=== PATIENT | female | born 1975 | race Caucasian/White ===

== ENCOUNTER 2022-08-01 08:20 | Emergency (ER) | payer OTHER, SELFPAY ==
[2022-08-01 08:32] VITALS: BP 136/73; PULSE 91; RESP 18; TEMP 36.6; O2SAT 100
--- NOTE | 2022-08-01 08:33 | ED.URI ---
HPI - URI/Sore Throat General Chief Complaint: Upper Respiratory Infection Stated Complaint: Sore Throat/Body Aches Time Seen by Provider: 08/01/22 08:33 History of Present Illness HPI Narrative: 46-year-old female presented for complaint of headache, body aches, sinus pressure/congestion, cough, Hot/cold. onset 3 days. She denies shortness of breath, wheezing, nausea, vomiting, diarrhea. She has not taken anything for symptoms. She endorses her coworkers have children with strep. Related Data Home Medications Medication Instructions Recorded Confirmed empagliflozin 10 mg tablet mg 08/01/22 (Jardiance) Allergies Allergy/AdvReac Type Severity Reaction Status Date / Time No Known Allergies Allergy Mild Verified 08/01/22 08:34 Review of Systems Review of Systems: ROS per HPI Exam Narrative: GENERAL: Ill-appearing, no acute distress. EYES: conjunctivae clear ENT: Mucous membranes moist. TM pearly fernandes with normal light reflex bilaterally; no tragal tenderness. Oropharynx erythematous without lesions. Tonsils enlarged and without exudate. No drooling, no hoarseness, no trismus, uvula midline. No tripod positioning, hot potato voice, or soft palate swelling. NECK: Supple. No lymphadenopathy CHEST: Clear to auscultation, breath sounds equal. No respiratory distress, speaks in full sentences. HEART: Regular rate and rhythm. No murmur heard. SKIN: Warm, dry, no rash. NEURO: Alert and oriented x3. Course Course Emergency Course: Patient is aware of diagnosis, understands and agrees to treatment plan. Anticipatory guidance given. Patient agrees to follow-up as directed and is aware of reasons to seek care at the emergency department. Portions of this record may have been created with voice recognition software Level of Care: Express Care Visit Vital Signs Vital signs: Vital Signs Temperature 97.8 F 08/01/22 08:32 Pulse Rate 91 08/01/22 08:32 Respiratory Rate 18 08/01/22 08:32 Blood Pressure 136/73 08/01/22 08:32 Pulse Oximetry 100 08/01/22 08:32 Oxygen Delivery Room Air 08/01/22 08:32 Temperature 97.8 F 08/01/22 08:32 Pulse Rate 91 08/01/22 08:32 Respiratory Rate 18 08/01/22 08:32 Blood Pressure 136/73 08/01/22 08:32 Pulse Oximetry 100 08/01/22 08:32 Oxygen Delivery Room Air 08/01/22 08:32 MDM - URI/Sore Throat MDM Narrative Medical decision making narrative: Due to lack of resources, unable to test for influenza or rapid strep at this time. Will send culture Patient verbalizes understanding. COVID results reviewed with patient. Advised supportive measures and signs and symptoms to go to the ER. Patient is appropriate for outpatient treatment and follow-up. Differential Diagnosis Differential diagnosis: Likely upper respiratory infection, viral infection and pharyngitis Discharge Plan Discharge Clinical Impression: Viral infection Patient Disposition: Home, Self-Care Condition: Stable Instructions: Viral Syndrome (ED) Additional Instructions: You will be notified in a few days if the culture comes back positive for strep, and appropriate antibiotics will be called in at that time. if symptoms are due to a viral illness, it is not treated with antibiotics. Viral symptoms can be present for up to 10-14 days. Recommend Flonase spray and Zyrtec for sinus congestion Cough syrup may cause drowsiness; avoid driving or take it at night time. Tylenol every 8 hours as needed for pain/fever Soft foods, cool liquids, warm tea. Gargle with warm saltwater twice a day. Chloraseptic spray and throat lozenges. Rest and stay hydrated. --Follow up with your PCP if symptoms are not improving, or sooner if symptoms are worsening. Go to the ER immediately if you cannot swallow your saliva, trouble breathing/wheezing, throat swelling, pain is persistent and severe Prescriptions: No Action Jardiance 10 mg tablet Follow-up/R
== END 2022-08-01 09:20 | disposition home or self-care (01) ==
PROVIDERS: Emergency Provider Nurse Practitioner Family; PCP Family Medicine
DX: B34.9 Viral infection, unspecified (principal); Z20.822 Contact with and (suspected) exposure to COVID-19
CPT/HCPCS: 87081; 87426; 99213; C9803; G0463

== ENCOUNTER 2022-10-31 08:01 | Emergency (ER) | payer OTHER, SELFPAY ==
[2022-10-31 08:06] VITALS: BP 142/94; PULSE 105; RESP 18; TEMP 37.1; O2SAT 99
--- NOTE | 2022-10-31 08:21 | ED.URI ---
HPI - URI/Sore Throat General Chief Complaint: Upper Respiratory Infection Stated Complaint: cold/flu/asthma Time Seen by Provider: 10/31/22 08:10 Source: patient and RN notes reviewed History of Present Illness HPI Narrative: Patient is a 46-year-old female who presents to urgent care with complaints of viral symptoms of cough, nasal drainage, bilateral ear pain and fever. Patient states that she feels better today and has been taking Tylenol however her work was requiring a work note because she missed 2 days. Patient is also requesting a refill of her albuterol inhaler. No other acute complaints. No acute distress noted. Patient aware of the plan of care. Some parts of this dictation were generated by voice recognition software and may contain typographical and/or grammatical inaccuracies. Related Data Home Medications Medication Instructions Recorded Confirmed tirzepatide 7.5 mg/0.5 mL mg subcut 10/31/22 subcutaneous pen injector (Mounjaro) Allergies Allergy/AdvReac Type Severity Reaction Status Date / Time No Known Allergies Allergy Mild Verified 10/31/22 08:13 Review of Systems Review of Systems: CONSTITUTIONAL: Reports of fever EYES: Denies visual changes, redness, or discharge. ENT: Reports rhinorrhea, congestion, postnasal drainage CARDIOVASCULAR: Denies chest pain, palpitations, or edema. RESPIRATORY: Reports of cough without dyspnea GASTROINTESTINAL: Denies abdominal pain, nausea, vomiting, or diarrhea. GENITOURINARY: Denies dysuria or hematuria. SKIN: Denies rash or itching. MUSCULOSKELETAL: Denies back pain, joint pain, or myalgia. NEUROLOGIC: Denies headache, numbness, or weakness. All other systems reviewed are negative, except as documented in HPI. PMFSH Comments At the time of my signature, I reviewed and agree with the nursing past medical, surgical, social, and family history. There is no relevant family history pertinent to the patient complaint. Exam Narrative: GENERAL: This is a well-nourished, well-developed patient, in no apparent distress. HEAD: normocephalic, atraumatic. EYES: PERRL. Sclera clear/white. Vision is grossly intact. EARS: External ears normal, auditory canals clear and without drainage, TMs normal without perforation. Hearing grossly intact. NOSE: External nose normal with no obvious nasal discharge, nares without redness, no rhinorrhea. THROAT: Mucous membranes moist, posterior pharynx clear. Mild postnasal drainage NECK: Neck supple CARDIOVASCULAR: Regular rate and rhythm without murmurs, gallops, or rubs. RESPIRATORY: Clear to auscultation. Breath sounds equal bilaterally. No wheezes, rales, or rhonchi. SKIN: warm, intact with no suspicious lesions or rash, good texture and turgor. NEURO: awake, alert, and oriented to person, place and time. There were no obvious focal neurologic abnormalities. EXTREMITIES: No clubbing, cyanosis, or edema. Course Course Level of Care: Express Care Visit Vital Signs Vital signs: Vital Signs Temperature 98.7 F 10/31/22 08:06 Pulse Rate 105 H 10/31/22 08:06 Respiratory Rate 18 10/31/22 08:06 Blood Pressure 142/94 H 10/31/22 08:06 Pulse Oximetry 99 10/31/22 08:06 Oxygen Delivery Room Air 10/31/22 08:06 Temperature 98.7 F 10/31/22 08:06 Pulse Rate 105 H 10/31/22 08:06 Respiratory Rate 18 10/31/22 08:06 Blood Pressure 142/94 H 10/31/22 08:06 Pulse Oximetry 99 10/31/22 08:06 Oxygen Delivery Room Air 10/31/22 08:06 Reviewed- Patient is informed that they may have pre-hypertension or hypertension based on a blood pressure reading in the department. I recommend the patient call the primary care provider listed on their discharge instructions or a physician of their choice this week to arrange follow-up for further evaluation of possible pre-hypertension or hypertension. MDM - URI/Sore Throat MDM Narrative Medical decision making narrative: Advised patient to use a daily antihistamine
== END 2022-10-31 08:51 | disposition home or self-care (01) ==
PROVIDERS: Emergency Provider Nurse Practitioner Family; PCP Family Medicine
DX: J00 Acute nasopharyngitis [common cold] (principal)
CPT/HCPCS: 99211; G0463